=== PATIENT | male | born 1975 | race Caucasian/White ===

== ENCOUNTER 2016-07-27 21:26 | Emergency (ER) | payer SELFPAY ==
[2016-07-27 21:38] VITALS: BP 171/116; PULSE 98
[2016-07-27 21:51] VITALS: TEMP 98.1; BMI 28.7
[2016-07-27 21:52] LABS: ALL NEG? NO
[2016-07-27 21:59] LABS: LEUKOCYTES/URINE NEG (NEGATIVE); NITRITE/URINE NEG (NEGATIVE); URINE OCCULT BLOOD NEG (NEG/TRACE)
[2016-07-27 22:02] LABS: MDMA* NEG (NEGATIVE); METHAMPHETAMINES NEG (NEGATIVE); OXYCODONE NEG (NEGATIVE)
--- NOTE | 2016-07-27 22:12 | EDPRACDOC ---
- General Information Chief Complaint: Flu-Like Symptoms Stated Complaint: SICK FOR WEEKS PANIC ATTACKS Information Source: Patient Home Medications: Home Medications Multivitamin [One Daily Essential] 1 tab PO DAILY 07/27/16 Oseltamivir Phosphate [Tamiflu] 75 mg PO BID #10 capsule 07/27/16 Allergies/Adverse Reactions: Allergies Allergy/AdvReac Type Severity Reaction Status Date / Time No Known Allergies Allergy Verified 02/28/15 20:17 - History of Present Illness Onset: 6 weeks HPI: C/o cough, bilateral earache, runny nose, HSA, diarrhea x 6 weeks. denies fever , cp, sob, sore throat, N/V, chnages in urine. Med hx = HTN, ASTHAM, PANIC D/O AND ACID REFLUX. Shortness of Breath: None Relevant History of: Reports: Asthma Cough: Reports: Non-productive Rhinorrhea: Reports: Clear Fever Severity/Quality: Reports: no fever Ear Symptoms: Reports: Earache (BILAT) Associated Signs & Symptoms: Reports: Cough, Earache, Headache, Nasal Symptoms, Diarrhea Oral Intake: Normal Urinary Output: Normal ED Past Medical History - History Reviewed Yes Nurses notes reviewed and agree except as marked - Patient Medical History Cardiac History: Reports: Hypertension Psychological History: Reports: Depression (panic disorder), Anxiety Surgical History: Reports: Appendectomy - Social Medical History Smoking Status: Never smoker EDM Review of Systems - Review of Systems ROS Negative Except as Marked: Yes All systems reviewed and were negative except as marked Ears: Pain Nose: Congestion Respiratory: Cough Gastrointestinal: Diarrhea Neurological: Headache Psychiatric: Anxiety - Physical Exam Constitutional: Alert Oriented to: Time, Person, Place Last recorded Vital Signs: Last Vital Signs Temp 98.1 F 07/27/16 21:28 Pulse 98 07/27/16 21:28 Resp 18 07/27/16 21:28 BP 171/116 H 07/27/16 21:28 Pulse Ox 97 07/27/16 21:28 Oxygen Pulse Oxygen Saturation 97 O2 Device Room Air Oxygen Flow Rate Fraction of Inspired Oxygen ( FIO2) - HEENT Head: Normal Eye Exam: negative: Conjunctival Injection, Scleral Icterus Oropharynx: negative: Drooling Tympanic Membrane: Normal ENT EAC: Normal TMJ: Normal Nose: No Symptoms Reported Neck: Normal - Respiratory/Cardiovascular Respiratory: Normal - CTA Cardiovascular: Normal - GI Tenderness: Non tender - Musculoskeletal Back: Normal Extremities: Normal - Integumentary Skin: Normal - Neurologic Mood Description: Anxious, Agitated Thought: Coherent - Results Urine Color Pale yellow 07/27/16 Unknown Urine Clarity Clear 07/27/16 Unknown Urine pH 7.0 (5.0-8.0) 07/27/16 Unknown Ur Specific [place] 1.005 (1.003-1.035) 07/27/16 Unknown Urine Protein Neg (NEG/TRACE) 07/27/16 Unknown Urine Glucose (UA) Neg (NEGATIVE) 07/27/16 Unknown Urine Ketones Neg (NEGATIVE) 07/27/16 Unknown Urine Occult Blood Neg (NEG/TRACE) 07/27/16 Unknown Urine Nitrite Neg (NEGATIVE) 07/27/16 Unknown Urine Bilirubin Neg (NEGATIVE) 07/27/16 Unknown Urine Urobilinogen <2.0 MG/DL (0-1) 07/27/16 Unknown Ur Leukocyte Esterase Neg (NEGATIVE) 07/27/16 Unknown Urine Opiates Screen Neg (NEGATIVE) 07/27/16 Unknown Ur Oxycodone Screen Neg (NEGATIVE) 07/27/16 Unknown Urine Methadone Screen Neg (NEGATIVE) 07/27/16 Unknown Ur Barbiturates Screen Neg (NEGATIVE) 07/27/16 Unknown Ur Tricyclics Screen Neg (NEGATIVE) 07/27/16 Unknown Ur Phencyclidine Scrn Neg (NEGATIVE) 07/27/16 Unknown Ur Amphetamines Screen Neg (NEGATIVE) 07/27/16 Unknown U Methamphetamines Scrn Neg (NEGATIVE) 07/27/16 Unknown Urine MDMA Screen Neg (NEGATIVE) 07/27/16 Unknown U Benzodiazepines Scrn Neg (NEGATIVE) 07/27/16 Unknown Urine Cocaine Screen Neg (NEGATIVE) 07/27/16 Unknown Ur THC Screen *positive* (NEGATIVE) H 07/27/16 Unknown Lab Results 07/27/16 07/27/16 Unknown Unknown Urine Color Pale yellow Urine Clarity Clear Urine pH 7.0 Ur Specific [place] 1.005 Urine Protein Neg Urine Glucose (UA) Neg Urine Ketones Neg Urine Occult Blood Neg Urine Nitrite Neg Urine Bilirubin Neg Urine Urobilinogen <2.0 Ur Leukocyte Esterase Neg Urine Opiates Screen Neg Ur Oxycodone Screen Neg Urine Methadone Screen Neg Ur Barbiturates Screen Neg Ur Tricyclics Screen Neg Ur Phencyclidine Scrn Neg Ur Amphetamines Screen Neg U Methamphetamines Scrn Neg Urine MDMA Screen Neg U Benzodiazepines Scrn Neg Urine Cocaine Screen Neg Ur THC Screen *positive* H Decision Time to Discharge: 22:15 - Departure Disposition: Home Condition: Stable Final Diagnosis: Flu-like symptoms Instructions: Influenza (ED) Education/Counseling Given To: Patient, Family Member Education/Counseling Given Regarding: Diagnosis, Treatment, Prognosis, Follow Up Referrals: None,No Provider [Primary Care Provider] - One Week Prescriptions: Oseltamivir Phosphate [Tamiflu] 75 mg PO BID #10 capsule Additional Instructions: Follow up with primary care. Take tamiflu for 5 days for flu like symptoms. Return to ED for any new or worsening symptoms.
== END 2016-07-27 22:25 | disposition home or self-care (01) ==
LOC: ED 21:26
DX: J11.1 Influenza due to unidentified influenza virus with other respiratory manifestations (principal)
CPT/HCPCS: 80307; 81001; 99283

== ENCOUNTER 2016-07-28 12:00 | Emergency (ER) | payer SELFPAY ==
[2016-07-28 12:00] VITALS: BMI 28.7
[2016-07-28 12:25] VITALS: TEMP 99.5
[2016-07-28] MEDS ORDERED: ONDANSETRON HCL 4 MG/2 ML VIAL IV ONE (12:27)
[2016-07-28] MEDS ORDERED: LORAZEPAM 2 MG/ML VIAL IV ONE (12:27)
[2016-07-28] MEDS ORDERED: SODIUM CHLORIDE 0.9% 10 ML FLUSH FLUSH PRN (12:27)
--- NOTE | 2016-07-28 12:30 | EDPRACDOC ---
<Krunal Dunn - Last Filed: 07/28/16 14:01> - General Information Information Source: Patient Mode Of Arrival: Ambulance - History of Present Illness Onset: 1 month or more now HPI: Pt states he is having anxiety/panic attack this morning. C/o n/v/d, diffuse abd pain, cough, shaking, anxious. Pt seen in ED last night and dx with flu. Pt states drinks beer daily and has not had a drink today. Denies SI, HI Symptoms Occured: Reports: Spontaneous Duration: Reports: Since Onset Emesis: Reports: Food Particles Recent: Reports: None Pain Quality: Reports: Aching Pain Severity: Moderate Pain Location: Reports: Diffuse Associated Signs and Symptoms: Reports: Chills, Nausea, Vomiting, Diarrhea, Anorexia Oral Intake: Decreased Urinary Output: Normal <Kelly Elise - Last Filed: 07/28/16 16:12> - General Information Chief Complaint: Flu-Like Symptoms Stated Complaint: FLU S/S Time Seen by Provider: 07/28/16 12:15 Home Medications: Home Medications Multivitamin [One Daily Essential] 1 tab PO DAILY 07/27/16 Oseltamivir Phosphate [Tamiflu] 75 mg PO BID #10 capsule 07/27/16 Chlordiazepoxide HCl [Librium] 25 mg PO Q6H #16 capsule 07/28/16 Lorazepam [Ativan] 1 mg PO Q6H PRN #15 tab 07/28/16 Ondansetron HCl [Zofran] 4 mg PO Q8H PRN #15 tab 07/28/16 Allergies/Adverse Reactions: Allergies Allergy/AdvReac Type Severity Reaction Status Date / Time No Known Allergies Allergy Verified 02/28/15 20:17 - Treatment Prior to ED Arrival Reported Medications/Treatment COLD MEAT CHEF EMS Treatment BLS IV No <Krunal Dunn - Last Filed: 07/28/16 14:01> - Treatment Prior to ED Arrival Reported Medications/Treatment COLD MEAT CHEF EMS Treatment BLS IV No <Kelly Elise - Last Filed: 07/28/16 16:12> ED Past Medical History - History Reviewed Yes Nurses notes reviewed and agree except as marked - Patient Medical History Cardiac History: Reports: Hypertension Psychological History: Reports: Depression (panic disorder), Anxiety - Social Medical History Smoking Status: Never smoker ETOH: Abuse Substance Abuse: None <Elise,Kelly E - Last Filed: 07/28/16 16:12> EDM Review of Systems - Review of Systems Constitutional: Chills, Diaphoresis Ears: No Symptoms Reported. negative: Pain, Hearing Loss, Drainage, Ear Pulling Throat: No Symptoms Reported. negative: Pain, Swelling Nose: Congestion Mouth: No Symptoms Reported. negative: Pain, Drooling Respiratory: Cough, Shortness of Breath Cardiovascular: Chest Pain Gastrointestinal: Diarrhea, Nausea, Pain, Vomiting Genitourinary: No Symptoms Reported. negative: Dysuria, Hematuria, Frequency, Discharge, Bleeding, Testicular Pain, Neurological: No Symptoms Reported. negative: Headache, Dizziness, Seizure, Numbness, Weakness, Speech Difficulty, Gait Difficulty Musculoskeletal: No Symptoms Reported. negative: Neck, Chestwall, Ribs, Back, Shoulder, Arm, Elbow, Forearm, Wrist, Hand, Pelvis, Hip, Femur, Knee, Leg, Ankle , Foot Integumentary: No Symptoms Reported. negative: Itching, Rash, Bruising, Wound Allergic/Immunologic: No Symptoms Reported. negative: Hives, Itching Hematologic: No Symptoms Reported. negative: Lymphadenopathy, Easy Bruising, Easy Bleeding Psychiatric: Anxiety <Kelly Elise - Last Filed: 07/28/16 16:12> - Physical Exam Last recorded Vital Signs: Last Vital Signs Temp 99.5 F 07/28/16 12:18 Pulse 91 07/28/16 13:56 Resp 18 07/28/16 13:56 BP 153/81 07/28/16 13:56 Pulse Ox 95 07/28/16 13:56 Oxygen Pulse Oxygen Saturation 95 O2 Device Room Air Oxygen Flow Rate Fraction of Inspired Oxygen ( FIO2) <Krunal Dunn - Last Filed: 07/28/16 14:01> - Physical Exam Constitutional: Alert Oriented to: Time, Person, Place Last recorded Vital Signs: Last Vital Signs Temp 99.5 F 07/28/16 12:18 Pulse 96 07/28/16 12:18 Resp 20 07/28/16 12:18 BP 162/85 07/28/16 12:18 Pulse Ox 100 07/28/16 12:18 Oxygen Pulse Oxygen Saturation 100 O2 Device Room Air Oxygen Flow Rate Fraction of Inspired Oxygen ( FIO2) - HEENT Head: Normal ( normocephalic) Eye Exam: Normal (PERRL, EOMI, Sclera white) Oropharynx: Normal (Pharynx:Moist without exudate,Gums-no swelling) Tympanic Membrane: Normal ENT EAC: Normal Nose: Congestion Neck: Normal (FROM, trachea at midline) - Respiratory/Cardiovascular Respiratory: Normal - CTA (BBS clear to auscultation without adventitious sounds ) Cardiovascular: Normal (RRR without murmur, gallop or rub) - GI Auscultation: Normal (NABS) Palpation: Normal (Soft,No rebound or guarding, non distended) Tenderness: Non tender - Musculoskeletal Back: Normal (Non-Tender) Extremities: Normal (Normal tone, Pulses 2+ No cyanosis or edema, FROM) - Integumentary Skin: Diaphoretic Lymphatics: Normal (no adenopathy) - Neurologic Memory Impaired: Normal Motor Function: Normal (Normal tone, Pulses 2+ No cyanosis or edema, FROM) Mood Description: Anxious Perception: Normal <Kelly Elise - Last Filed: 07/28/16 16:12> - Results 07/28/16 12:15 07/28/16 12:15 WBC 6.8 xk/uL (3.8-10.8) 07/28/16 12:15 RBC 4.08 xM/uL (4.70-6.10) L 07/28/16 12:15 Hgb 13.8 g/dL (14.0-18.0) L 07/28/16 12:15 Hct 40.5 % (42-52) L 07/28/16 12:15 MCV 99 fL (80-94) H 07/28/16 12:15 MCH 33.8 pg (27-32) H 07/28/16 12:15 MCHC 34.0 g/dl (33-36) 07/28/16 12:15 RDW 13.1 % (11.5-14.5) 07/28/16 12:15 Plt Count 58 xk/uL (130-400) L 07/28/16 12:15 MPV 8.8 fL (7.4-10.4) 07/28/16 12:15 Neut % (Auto) Cancelled 07/28/16 12:15 Lymph % (Auto) Cancelled 07/28/16 12:15 [place] % (Auto) Cancelled 07/28/16 12:15 Eos % (Auto) Cancelled 07/28/16 12:15 Baso % (Auto) Cancelled 07/28/16 12:15 Absolute Neuts (auto) Cancelled 07/28/16 12:15 Absolute Lymphs (auto) Cancelled 07/28/16 12:15 Seg Neuts % (Manual) 74 % (45-76) 07/28/16 12:15 Band Neutrophils % 0 % (0-5) 07/28/16 12:15 Lymphocytes % (Manual) 24 % (17-44) 07/28/16 12:15 Monocytes % (Manual) 2 % (0-10) 07/28/16 12:15 Absolute Neutrophils 5.03 xk/uL (1.7-8.2) 07/28/16 12:15 Absolute Lymphocytes 1.63 xk/uL (0.65-4.75) 07/28/16 12:15 Platelet Estimate Dec (NORMAL) 07/28/16 12:15 RBC Morphology Norm 07/28/16 12:15 Puncture Site Lra 07/28/16 13:19 pH 7.570 pH UNITS (7.35-7.45) H 07/28/16 13:19 pCO2 29.0 mmHg (35-45) L 07/28/16 13:19 pO2 81.0 mmHg (80-100) 07/28/16 13:19 HCO3 26.6 MMOL/L (22-26) H 07/28/16 13:19 Total CO2 27.5 MMOL/L (23-27) H 07/28/16 13:19 Base Excess 5.2 (+/- 2) H 07/28/16 13:19 FiO2 % 21 07/28/16 13:19 Specimen Drawn By Dared 07/28/16 13:19 Sodium 142 mEq/L (137-146) 07/28/16 12:15 Potassium 3.8 mEq/L (3.5-5.1) 07/28/16 12:15 Chloride 98 mEq/L (98-107) 07/28/16 12:15 Carbon Dioxide 23 mMOL/L (22-33) 07/28/16 12:15 Anion Gap 25 mEq/L (8-16) H 07/28/16 12:15 BUN 4 MG/DL (9-20) L 07/28/16 12:15 Creatinine 0.50 MG/DL (0.66-1.25) L 07/28/16 12:15 Estimated GFR (MDRD) > 60 mL/min (>=60) 07/28/16 12:15 Glucose 171 MG/DL (70-99) H 07/28/16 12:15 Calculated Osmolality 274 MOs/Kg (270-290) 07/28/16 12:15 Lactic Acid 2.8 mEq/L (0.7-2.1) H 07/28/16 13:10 Calcium 9.8 MG/DL (8.4-10.2) 07/28/16 12:15 Total Bilirubin 2.3 MG/DL (0.2-1.3) H 07/28/16 12:15 AST 192 IU/L (17-59) H 07/28/16 12:15 ALT 65 IU/L (21-72) 07/28/16 12:15 Alkaline Phosphatase 262 IU/L (38-126) H 07/28/16 12:15 Total Protein 9.5 G/DL (6.3-8.2) H 07/28/16 12:15 Albumin 4.6 G/DL (3.5-5.0) 07/28/16 12:15 Lipase 476 U/L (23-300) H 07/28/16 12:15 Plasma/Serum Ethyl Alc 0.02 % (<0.01) H 07/28/16 12:15 Lab Results 07/28/16 07/28/16 07/28/16 13:19 13:10 12:15 WBC 6.8 RBC 4.08 L Hgb 13.8 L Hct 40.5 L MCV 99 H MCH 33.8 H MCHC 34.0 RDW 13.1 Plt Count 58 L MPV 8.8 Neut % (Auto) Cancelled Lymph % (Auto) Cancelled [place] % (Auto) Cancelled Eos % (Auto) Cancelled Baso % (Auto) Cancelled Absolute Neuts (auto) Cancelled Absolute Lymphs (auto) Cancelled Seg Neuts % (Manual) 74 Band Neutrophils % 0 Lymphocytes % (Manual) 24 Monocytes % (Manual) 2 Absolute Neutrophils 5.03 Absolute Lymphocytes 1.63 Platelet Estimate Dec RBC Morphology Norm Puncture Site Lra pH 7.570 H pCO2 29.0 L pO2 81.0 HCO3 26.6 H Total CO2 27.5 H Base Excess 5.2 H FiO2 % 21 Specimen Drawn By Dared Sodium Potassium Chloride Carbon Dioxide Anion Gap BUN Creatinine Estimated GFR (MDRD) Glucose Calculated Osmolality Lactic Acid 2.8 H Calcium Total Bilirubin AST ALT Alkaline Phosphatase Total Protein Albumin Lipase Plasma/Serum Ethyl Alc 07/28/16 12:15 WBC RBC Hgb Hct MCV MCH MCHC RDW Plt Count MPV Neut % (Auto) Lymph % (Auto) [place] % (Auto) Eos % (Auto) Baso % (Auto) Absolute Neuts (auto) Absolute Lymphs (auto) Seg Neuts % (Manual) Band Neutrophils % Lymphocytes % (Manual) Monocytes % (Manual) Absolute Neutrophils Absolute Lymphocytes Platelet Estimate RBC Morphology Puncture Site pH pCO2 pO2 HCO3 Total CO2 Base Excess FiO2 % Specimen Drawn By Sodium 142 Potassium 3.8 Chloride 98 Carbon Dioxide 23 Anion Gap 25 H BUN 4 L Creatinine 0.50 L Estimated GFR (MDRD) > 60 Glucose 171 H Calculated Osmolality 274 Lactic Acid Calcium 9.8 Total Bilirubin 2.3 H AST 192 H ALT 65 Alkaline Phosphatase 262 H Total Protein 9.5 H Albumin 4.6 Lipase 476 H Plasma/Serum Ethyl Alc 0.02 H <Krunal Dunn - Last Filed: 07/28/16 14:01> - Differential Diagnosis Dehydration, Diarrhea Viral, Gastritis, Gastroenteritis, Pancreatitis, Urinary tract infection, Diarrhea, Other (influenza, withdrawal symptoms) - Re-evaluation Re-evaluation 1 Re-evaluation Time: 15:55 (improved but still shaky. Pt refused to stay for detox or help withdrawal symptoms.) - Results 07/28/16 12:15 07/28/16 12:15 - EKG EKG #1 EKG Time: 12:33 Rate: bpm: 105 [place]: Normal Rhythm: ST Block: None ST: Nonsp Comparison: 02/28/15 (no significant change) - Diagnostic Imaging Chest Image interpreted by: Radiologist IMPRESSION: No active cardiopulmonary disease Abdomen Image interpreted by: Radiologist IMPRESSION: 1. Diffusely echogenic liver, most likely due to steatosis. 2. Otherwise, normal examination. <Kelly Elise - Last Filed: 07/28/16 16:12> <Krunal Dunn - Last Filed: 07/28/16 14:01> - Departure Disposition: AMA Education/Counseling Given To: Patient Education/Counseling Given Regarding: Diagnosis, Treatment, Follow Up <Kelly Elise Giuliano - Last Filed: 07/28/16 16:12> - Departure Condition: Stable Final Diagnosis: Alcohol abuse, Fatty liver Alcohol withdrawal Qualifiers: Complication of substance-induced condition: with unspecified complication Qualified Code(s): F10.239 - Alcohol dependence with withdrawal, unspecified Instructions: Alcohol Withdrawal (ED) Referrals: None,No Provider [Primary Care Provider] - One Week Joe Sanchez MD [Staff Physician] - One Week Prescriptions: Chlordiazepoxide HCl [Librium] 25 mg PO Q6H #16 capsule Lorazepam [Ativan] 1 mg PO Q6H PRN #15 tab PRN Reason: Withdrawal Symptoms Ondansetron HCl [Zofran] 4 mg PO Q8H PRN #15 tab PRN Reason: Nausea/Vomiting Additional Instructions: Return for worse or different symptoms.
[2016-07-28] MEDS: NS 2,000 ML IV ONE ×2 (12:34→13:54)
[2016-07-28 12:36] LABS: MPV 8.8 fL (7.4-10.4)
[2016-07-28 12:50] LABS: BLOOD UREA NITROGEN 4 MG/DL (9-20); CALCIUM 9.8 MG/DL (8.4-10.2); CALCULATED OSMOLALITY 274 MOs/Kg (270-290); CHLORIDE 98 mEq/L (98-107); ETOH-MGDL 17 mg/dL; GLUCOSE 171 MG/DL (70-99); SODIUM LEVEL 142 mEq/L (137-146); TOTAL PROTEIN 9.5 G/DL (6.3-8.2)
[2016-07-28] MEDS ORDERED: NS 1,000 ML IV SCH (13:00)
[2016-07-28] MEDS ORDERED: MORPHINE 4 MG/ML INJECTION IV ONE (13:00)
[2016-07-28 13:01] LABS: SEG NEUTROPHIL 74 % (45-76)
[2016-07-28 13:22] LABS: ABG Draw Site LRA; ALLEN'S TEST PASS; BEb 5.2 (+/- 2); TCO2 27.5 MMOL/L (23-27)
--- NOTE | 2016-07-28 13:47 | DIRPT ---
CLINICAL DATA: Cough, anxiety, diffuse abdominal pain EXAM: CHEST 2 VIEW COMPARISON: 07/03/2013 FINDINGS: There is no focal parenchymal opacity. There is no pleural effusion or pneumothorax. The heart and mediastinal contours are unremarkable. The osseous structures are unremarkable. IMPRESSION: No active cardiopulmonary disease. Electronically Signed By: Taylor Dinh On: 07/28/2016 13:44
[2016-07-28 14:41] LABS: ALL NEG? NO
[2016-07-28 14:48] LABS: LEUKOCYTES/URINE NEG (NEGATIVE); NITRITE/URINE NEG (NEGATIVE); RBC/URINE 0-2 (0-2); URINE OCCULT BLOOD NEG (NEG/TRACE); WBC/URINE 0-2 (0-2)
[2016-07-28 15:04] LABS: METHAMPHETAMINES NEG (NEGATIVE)
[2016-07-28 15:05] LABS: MDMA* NEG (NEGATIVE); OXYCODONE NEG (NEGATIVE)
--- NOTE | 2016-07-28 15:32 | DIRPT ---
CLINICAL DATA: Abdominal pain and nausea for the past month. EXAM: US ABDOMEN LIMITED - RIGHT UPPER QUADRANT COMPARISON: None. FINDINGS: Gallbladder: No gallstones or wall thickening visualized. No sonographic Anne sign noted by tipple repairer. Common bile duct: Diameter: 3.7 mm Liver: Diffusely echogenic. No focal mass. IMPRESSION: 1. Diffusely echogenic liver, most likely due to steatosis. 2. Otherwise, normal examination. Electronically Signed By: Henry Coronado M.D. On: 07/28/2016 15:29
[2016-07-28 15:49] VITALS: BP 158/84; PULSE 90
== END 2016-07-28 16:21 | disposition left against medical advice (07) ==
LOC: ED 12:00
DX: F10.239 Alcohol dependence with withdrawal, unspecified (principal); K70.0 Alcoholic fatty liver; I10 Essential (primary) hypertension; F41.0 Panic disorder [episodic paroxysmal anxiety]; Z79.899 Other long term (current) drug therapy
CPT/HCPCS: 36415; 36600; 71020; 76705; 80053; 80307; 81001; 82803; 83605; 83690; 85007; 85027; 87040; 93005; 96361; 96374; 96375; 99284; J2060; J2270; J2405